=== PATIENT | female | born 1990 | race Caucasian/White ===

== ENCOUNTER 2016-07-22 13:29 | Emergency (ER) | payer MEDICARE, MEDICAID | END 2016-07-22 16:46 | disposition home or self-care (01) | DX: R00.0 Tachycardia, unspecified (principal); K21.9 Gastro-esophageal reflux disease without esophagitis ==

== ENCOUNTER 2017-10-27 10:15 | Outpatient (CLI) | payer OTHER | END 2017-10-27 10:45 | disposition home or self-care (01) | LOC: RT.N 10:15 | PROVIDERS: ATTEND Family Medicine | DX: R00.0 Tachycardia, unspecified (principal) | CPT/HCPCS: 93005 ==

== ENCOUNTER 2018-11-22 10:34 | Outpatient (CLI) | payer OTHER | END 2018-11-22 10:35 | disposition home or self-care (01) | LOC: SC 10:34 | PROVIDERS: ATTEND Internal Medicine Pulmonary Disease | DX: G47.33 Obstructive sleep apnea (adult) (pediatric) (principal) | CPT/HCPCS: 99203; 99212 ==

== ENCOUNTER 2018-12-14 20:30 | Outpatient (CLI) | payer OTHER | END 2018-12-14 20:31 | disposition home or self-care (01) | LOC: SC 20:30 | PROVIDERS: ATTEND Internal Medicine Pulmonary Disease | DX: G47.8 Other sleep disorders (principal); R53.83 Other fatigue | CPT/HCPCS: 95810 ==

== ENCOUNTER 2019-01-17 15:22 | Outpatient (CLI) | payer OTHER ==
--- NOTE | 2019-01-17 15:36 | CONSULTATION NOTE ---
Information from patient questionnaire entered by Lanny Ramos. I have reviewed and concur with the information entered by Lanny Ramos. This document represents the service I personally performed and the decisions made by me, Sandy Pérez MD, [facility]. - History of Present Illness HPI: returned for follow up of the sleep study she had on 12/14/18. The polysomnography showed that the patient had normal sleep efficiency. Except for mild sleep fragmentation, the sleep architecture was normal as well. Respiratory monitoring showed no significant sleep. disordered breathing (AHI = 2.4) or hypoxia (piper oxygen saturation of 90%). The respiratory events occurred. only during supine sleep (supine AHI = 3.4; non-supine = 0.00). Snore was light in intensity. There was no periodic leg movement of sleep. Cardiac rhythm was normal sinus rhythm with mild tachycardia.. No abnormal behavior (parasomnia) observed during the night. The patient was informed of these findings. I explained to her that the mild sleep-disordered breathing has resolved with weight loss. Initial [place] Sleepiness Scale score: 10 - Medications/Allergies Allergies No Known Drug Allergies Allergy (Verified 05/21/14 21:32) - Review of Systems Review of systems same as previous: Yes - Physical Exam Blood Pressure: 132/94 Heart Rate: 135 O2 Saturation: 99 Height: 5 ft 3.5 in Weight (kg): 109.316 kg Weight change since last visit: 6 lbs Body Mass Index: 42.0 BMI Classification: Class 3 - Impression Obstructive Sleep Apnea-Hypopnea Syndrome, mild, resolved with the 26-lb weight loss. No further treatment is necessary. - Plan Avoid weight regain. Return for follow up on as needed bassisra.
[2019-01-17 15:37] VITALS: BP 132/94
== END 2019-01-17 15:23 | disposition home or self-care (01) ==
LOC: SC 15:22
PROVIDERS: ATTEND Internal Medicine Pulmonary Disease
DX: G47.33 Obstructive sleep apnea (adult) (pediatric) (principal)
CPT/HCPCS: 99212